=== PATIENT | male | born 1965 | race Caucasian/White ===

== ENCOUNTER 2021-03-09 06:23 | Day surgery (SDC) | payer BC ==
[~2021-03-09 06:23] MED LIST: Lactated Ringers 1,000 ML IV SCH
--- NOTE | 2021-03-09 07:10 | PCM.PREANE ---
Preanesthetic Assessment - Procedure Proposed Procedure: EGD, Colonoscopy - Anesthesia/Transfusion/Family Hx Anesthesia History: Prior Anesthesia Without Reaction Family History of Anesthesia Reaction: No Transfusion History: No Prior Transfusion(s) - Review of Systems General: No Symptoms Pulmonary: No Symptoms Cardiovascular: No Symptoms (stents) Gastrointestinal: No Symptoms (GERD well controlled) Neurological: No Symptoms Other: Reports: None - Physical Assessment NPO Status Date: 03/08/21 NPO Status Time: 21:00 Vital Signs: Last Vital Signs Temp 97.7 F 03/09/21 06:53 Pulse 76 03/09/21 06:53 Resp 14 03/09/21 06:53 BP 133/85 03/09/21 06:53 Pulse Ox 95 03/09/21 06:53 Height: 5 ft 8 in Weight: 106.594 kg ASA Class: 3 Mental Status: Alert & Oriented x3 Airway Class: Mallampati = 3 Dentition: Reports: Normal Dentition Thyro-Mental Finger Breadths: 3 Mouth Opening Finger Breadths: 3 ROM/Head Extension: Full Lungs: Clear to Auscultation, Normal Respiratory Effort Cardiovascular: Regular Rate, Regular Rhythm - Allergies Allergies/Adverse Reactions: Allergies Allergy/AdvReac Type Severity Reaction Status Date / Time No Known Allergies Allergy Verified 03/05/21 07:34 - Acknowledgements Anesthesia Type Planned: General Anesthesia Pt an Appropriate Candidate for the Planned Anesthesia: Yes Alternatives and Risks of Anesthesia Discussed w Pt/Guardian: Yes Pt/Guardian Understands and Agrees with Anesthesia Plan: Yes PreAnesthesia Questionnaire HEENT History: Reports: Other (See Below) Other HEENT History: wears glasses Cardiovascular History: Reports: None Respiratory History: Reports: None Gastrointestinal History: Reports: GERD Genitourinary History: Reports: None Musculoskeletal History: Reports: Fracture Other Musculoskeletal History: hx fx collarbone and right foot Neurological History: Reports: None Psychiatric History: Reports: Anxiety, Depression Endocrine/Metabolic History: Reports: Obesity/BMI 30+ Hematologic History: Reports: None Immunologic History: Reports: None Oncologic (Cancer) History: Reports: None Dermatologic History: Reports: None - Past Surgical History Head Surgeries/Procedures: Reports: None HEENT Surgical History: Reports: None Cardiovascular Surgical History: Reports: None Respiratory Surgical History: Reports: None GI Surgical History: Reports: Colonoscopy, EGD Male Surgical History: Reports: Other (See Below) Other Male Surgeries/Procedures: hx testicular sugery Endocrine Surgical History: Reports: None Neurological Surgical History: Reports: None Musculoskeletal Surgical History: Reports: Shoulder Surgery Other Musculoskeletal Surgeries/Procedures:: states multiple surgeries to right shoulder Oncologic Surgical History: Reports: None Dermatological Surgical History: Reports: None - SUBSTANCE USE Tobacco Use Status *Q: Never Tobacco User - HOME MEDS Home Medications: Home Meds Citalopram Hydrobromide [Celexa] 20 mg PO DAILY 03/05/21 [History] LORazepam [Ativan] 2 mg PO BEDTIME 03/05/21 [History] Omeprazole 10 mg PO DAILY 03/05/21 [History] Zolpidem Tartrate 10 mg PO BEDTIME PRN 03/05/21 [History] - CURRENT (IN HOUSE) MEDS Current Meds: Current Medications Lactated Ringer's (Ringers, Lactated) 1,000 mls @ 125 mls/hr IV ASDIRECTED [facility] Last Admin: 03/09/21 06:58 Dose: 125 mls/hr Documented by:
[2021-03-09] MEDS ORDERED: propofoL 50 ML ONE (07:23)
[2021-03-09] MEDS ORDERED: Benzocaine 20% Topical Spray UD ONE (07:24)
[2021-03-09] MEDS ORDERED: fentaNYL 100 MCG/2 ML SDV ONE (07:25)
--- NOTE | 2021-03-09 08:35 | PCM.OPNOTE ---
- General Post-Op/Procedure Note Date of Surgery/Procedure: 03/09/21 Operative Procedure(s): Esophagogastroduodenoscopy with gastric and esophageal biopsies and gastric polypectomy. Colonoscopy Pre Op Diagnosis: Gastroesophageal reflux disease. Rectal bleeding. Post-Op Diagnosis: Mild gastritis with gastric polyps. Distal esophagitis. Internal hemorrhoids. Anesthesia Technique: MAC (ASA III) Primary Surgeon: Yogi Manzano Condition: Good Free Text/Narrative:: DICTATION [id number] CPT CODE [id number]
--- NOTE | 2021-03-09 08:37 | PCM.POSTAN ---
POST ANESTHESIA ASSESSMENT - MENTAL STATUS Mental Status: Alert, Oriented - VITAL SIGNS Vital Signs: Last Vital Signs Temp 97.7 F 03/09/21 06:53 Pulse 76 03/09/21 06:53 Resp 14 03/09/21 06:53 BP 133/85 03/09/21 06:53 Pulse Ox 95 03/09/21 06:53 - RESPIRATORY Respiratory Status: Respiratory Rate WNL, Airway Patent, O2 Saturation Stable - CARDIOVASCULAR CV Status: Pulse Rate WNL, Blood Pressure Stable - GASTROINTESTINAL GI Status: No Symptoms - PAIN Pain Score: 0 - POST OP HYDRATION Hydration Status: Adequate & Stable
[2021-03-09] MEDS ORDERED: Lactated Ringers 1,000 ML IV SCH (08:45)
--- NOTE | 2021-03-09 08:47 | PCM48HPAN ---
Post Anesthesia Note - EVALUATION WITHIN 48HRS OF ANESTHETIC Vital Signs in Normal Range: Yes Patient Participated in Evaluation: Yes Respiratory Function Stable: Yes Airway Patent: Yes Cardiovascular Function Stable: Yes Hydration Status Stable: Yes Pain Control Satisfactory: Yes Nausea and Vomiting Control Satisfactory: Yes Mental Status Recovered: Yes Vital Signs: Last Vital Signs Temp 97.7 F 03/09/21 06:53 Pulse 76 03/09/21 06:53 Resp 14 03/09/21 06:53 BP 133/85 03/09/21 06:53 Pulse Ox 95 03/09/21 06:53 - COMMENTS/OBSERVATIONS Free Text/Narrative:: Pt doing well post-op. VSS. No apparent anesthetic complications. Dr. Naren Mcdonald
--- NOTE | 2021-03-09 13:10 | OR ---
SURGEON: Yogi Manzano M.D. DATE OF PROCEDURE: 03/09/2021 OPERATION PERFORMED: Esophagogastroduodenoscopy with biopsy and gastric polypectomy. PRIMARY SURGEON: Yogi Manazno M.D. ANESTHESIA: MAC. ASA CLASSIFICATION: III. PREOPERATIVE DIAGNOSIS: Chronic gastroesophageal reflux disease with heartburn. POSTOPERATIVE DIAGNOSES: 1. Mild chronic gastritis. 2. Gastric polyps. 3. Distal esophagitis. DESCRIPTION OF PROCEDURE: The patient was taken in to the endoscopy room and positioned on the endoscopy table in the left lateral decubitus position. Time-out was called for appropriate identification of the patient and procedure. Monitored anesthesia care was provided. A bite block was placed between the patient's teeth. A gastroscope was inserted through the bite block into the oropharynx and advanced without difficulty through the esophagus and stomach into the duodenum where examination was now carried out in a retrograde fashion. The duodenum showed no acute inflammatory changes or ulcerations. The stomach did show mild chronic gastritis. Antral biopsies were obtained to look for the presence of Helicobacter pylori. No gastric ulcers were identified. The gastroscope was then retroflexed to visualize the proximal stomach. No significant hiatal hernia was noted. Small polyps were identified and biopsied as the scope was withdrawn. The greater and lesser curvatures were very well visualized. No tumors or ulcers were noted proximally. The gastroscope was then withdrawn to the GE junction which did show mild to moderate chronic inflammation. Biopsies of the GE junction at 40 cm were obtained, as there did appear to be some moderate esophagitis. The esophagus itself demonstrated good contractility. No mid or proximal lesions were identified. The vocal cords were visualized as the scope was withdrawn and noted to move symmetrically. The gastroscope was then removed with the patient having tolerated this portion of the procedure well. Following colonoscopy, he was taken to recovery room in stable condition. SOFIE / SARAHI /[id number]
--- NOTE | 2021-03-09 13:16 | OR ---
SURGEON: Yogi Manzano M.D. DATE OF PROCEDURE: 03/09/2021 OPERATION PERFORMED: Colonoscopy. PRIMARY SURGEON: Yogi Manzano M.D. ANESTHESIA: MAC. ASA CLASSIFICATION: III. PREOPERATIVE DIAGNOSIS: Rectal bleeding. POSTOPERATIVE DIAGNOSIS: No evidence of neoplasia. DESCRIPTION OF PROCEDURE: With the patient having completed upper GI endoscopy, he was maintained in the left lateral decubitus position. The colonoscope was inserted into the rectum and advanced with minimal difficulty to the cecum. The cecum was identified by internal landmarks and external pressure. The colonoscope was retroflexed in the cecum to visualize the ascending colon from below and then straightened and slowly withdrawn. The cecum, ascending colon, hepatic flexure, transverse colon, splenic flexure, descending colon, sigmoid colon, and rectum were very well visualized. No tumors, polyps, diverticula, or angiodysplastic changes were noted anywhere in the lower gastrointestinal tract. Once the colonoscope was withdrawn to the rectum, it was retroflexed to visualize the anal orifice from above. The patient did have some minor hemorrhoids but no acute bleeding. The colonoscope was then straightened, the rectum aspirated, and the colonoscope removed. The patient tolerated the procedure well and was taken to recovery room in stable condition. SOFIE / SARAHI /[id number]
== END 2021-03-09 09:34 | disposition home or self-care (01) ==
LOC: MW.SDS 06:23
PROVIDERS: ATTEND Surgery
DX: K62.5 Hemorrhage of anus and rectum (principal); K22.70 Barrett's esophagus without dysplasia; K29.50 Unspecified chronic gastritis without bleeding; K21.00 Gastro-esophageal reflux disease with esophagitis, without bleeding; F41.8 Other specified anxiety disorders; K64.9 Unspecified hemorrhoids; K31.7 Polyp of stomach and duodenum; E66.9 Obesity, unspecified; Z79.899 Other long term (current) drug therapy; Z98.890 Other specified postprocedural states; Z80.42 Family history of malignant neoplasm of prostate; Z68.35 Body mass index [BMI] 35.0-35.9, adult
CPT/HCPCS: 43239; 45378; A9270; J2704; J3010; J7120; 00813